=== PATIENT | male | born 1980 | race Caucasian/White ===

== ENCOUNTER 2024-09-03 16:08 | Emergency (ER) | payer MEDICARE, MEDICAID ==
[~2024-09-03] VITALS: Ht 177.8 cm; Wt 113.0 kg
[2024-09-03 16:16] VITALS: O2SAT 90
[2024-09-03] MEDS: IPRATROPIUM BROMIDE (0.02%) 0.5MG/2.5ML NEB HHN STA (16:31)
[2024-09-03] MEDS: ALBUTEROL (0.083%) 2.5MG/3ML NEB HHN SCH (17:00)
[2024-09-03] MEDS: PREDNISONE 20MG TABLET PO STA (17:05)
[2024-09-03] MEDS ORDERED: IPRATROPIUM/ALBUTEROL 0.5-3(2.5)MG/3ML NEB NEB PRN (22:30)
[2024-09-03] MEDS ORDERED: HALOPERIDOL LACTATE 5MG/ML VIAL IM PRN (22:30)
[2024-09-03] MEDS ORDERED: GUAIFENESIN 200MG/10ML SUGAR FREE UDC PO PRN (22:30)
[2024-09-03] MEDS ORDERED: CLONIDINE 0.1MG TABLET PO PRN (22:30)
[2024-09-03] MEDS ORDERED: ACETAMINOPHEN 325MG TABLET PO PRN ×2 (22:30)
[2024-09-03] MEDS ORDERED: NITROGLYCERIN 0.4MG TABLET SL SL PRN (22:30)
[2024-09-03] MEDS ORDERED: DOCUSATE SODIUM 100MG CAPSULE PO PRN (22:30)
[2024-09-03] MEDS ORDERED: MAGNESIUM/ALUMINUM HYDROXIDE/SIMETHICONE 30ML UDC PO PRN (22:30)
[2024-09-03] MEDS ORDERED: ONDANSETRON HCL 4MG/2ML INJ IV PRN (22:30)
[2024-09-03] MEDS ORDERED: KETOROLAC 15MG/ML VIAL IV PRN (22:30)
[2024-09-03] MEDS ORDERED: ZOLPIDEM TARTRATE 5MG TABLET PO PRN (22:30)
[2024-09-04 02:34] LABS: CHLORIDE 100 mEq/L (98-107); POTASSIUM 4.6 mEq/L (3.5-5.1); SODIUM 138 mEq/L (136-145)
[2024-09-04 02:35] LABS: CALCIUM 9.7 mg/dL (8.7-10.4); CARBON DIOXIDE 30 mEq/L (21-32)
[2024-09-04 02:40] LABS: GLUCOSE 150 mg/dL (70-105); IRON 34 ug/dL (65-175)
[2024-09-04 02:41] LABS: ETHANOL BLOOD < 10 mg/dL (<10); LDL CHOLESTEROL 130 mg/dL (5-100); TRIGLYCERIDE 170 mg/dL (0-150); UREA NITROGEN BLOOD 18 mg/dL (9-23)
[2024-09-04 02:42] LABS: CHOLESTEROL 183 mg/dL (<200); HDL CHOLESTEROL 30 mg/dL (>55)
[2024-09-04 02:43] LABS: TOTAL IRON BINDING CAPACITY 396 ug/dl (250-425); TROPONIN I HIGH SENSITIVITY 4 ng/L (3.0-53)
[2024-09-04 02:46] LABS: BASOPHILS % 0.6 % (0.0-2.0); EOSINOPHILS % 0.1 % (0.0-5.0); HEMATOCRIT. 42.2 % (42.0-52.0); HEMOGLOBIN. 13.9 g/dL (14.0-18.0); LYMPHOCYTES % 16.1 % (20.0-50.0); MEAN CORPUSCULAR HEMOGLOBIN 31.4 pg (28.0-32.0); MEAN CORPUSCULAR HGB CONC 33.1 g/dL (31.0-37.0); MEAN PLATELET VOLUME 9.8 fl (7.4-10.4); NEUTROPHILS % 76.2 % (40.0-76.0); PLATELET 254 x1000/uL (130-400); RED BLOOD CELL COUNT 4.44 mill/uL (4.7-6.1); RED CELL DISTRIBUTION WIDTH 15.8 % (11.6-14.6); T4 FREE 1.16 ng/dL (0.89-1.76); THYROID STIMULATING HORMONE 1.29 uIU/mL (0.55-4.78); WHITE BLOOD COUNT 7.3 x1000/uL (4.5-11.0)
[2024-09-04 02:53] LABS: D-DIMER 0.34 mg/L FEU (<0.50); INR 0.9; PROTHROMBIN TIME 10.4 sec (9.6-11.0)
[2024-09-04 03:52] LABS: FOLIC ACID (FOLATE) SERUM > 20.00 ng/mL (>5.38)
[2024-09-04 03:53] LABS: VITAMIN B12 SERUM 493 pg/mL (211-911)
[2024-09-04 08:19] LABS: BASOPHILS % 0.4 % (0.0-2.0); HEMATOCRIT. 40.9 % (42.0-52.0); HEMOGLOBIN. 13.5 g/dL (14.0-18.0); LYMPHOCYTES % 23.2 % (20.0-50.0); MEAN CORPUSCULAR HEMOGLOBIN 31.6 pg (28.0-32.0); MEAN CORPUSCULAR VOLUME 95.8 fL (80.0-94.0); MONOCYTES % 13.4 % (2.0-8.0); PLATELET 265 x1000/uL (130-400); RED BLOOD CELL COUNT 4.27 mill/uL (4.7-6.1); RED CELL DISTRIBUTION WIDTH 15.9 % (11.6-14.6); WHITE BLOOD COUNT 7.7 x1000/uL (4.5-11.0)
[2024-09-04 08:35] LABS: CHLORIDE 103 mEq/L (98-107); POTASSIUM 4.4 mEq/L (3.5-5.1); SODIUM 139 mEq/L (136-145)
[2024-09-04 08:36] LABS: CALCIUM 9.6 mg/dL (8.7-10.4); CARBON DIOXIDE 27 mEq/L (21-32)
[2024-09-04 08:41] LABS: CREATININE 0.9 mg/dL (0.6-1.3); GLUCOSE 123 mg/dL (70-105); UREA NITROGEN BLOOD 23 mg/dL (9-23)
[2024-09-04 08:43] LABS: ALANINE AMINOTRANSFERASE 71 IU/L (10-49); ALBUMIN 4.8 g/dL (3.2-4.8); ASPARTATE AMINOTRANSFERASE 55 IU/L (<34); BILIRUBIN TOTAL 0.2 mg/dL (0.1-1.0); PHOSPHORUS 4.1 mg/dL (2.5-4.9); PROTEIN TOTAL 8.2 g/dL (6.0-8.3)
[2024-09-04] MEDS ORDERED: GUAIFENESIN 600MG ER TABLET PO SCH (09:00)
[2024-09-04] MEDS ORDERED: ZYDS20 PO (11:39)
[2024-09-04] MEDS: DIPHENHYDRAMINE 50MG/ML VIAL IM ONE (11:40)
[2024-09-04] MEDS: ENOXAPARIN 30MG/0.3ML SYR SUBCUT SCH (11:40)
[2024-09-04] MEDS: AZITHROMYCIN 500 MG in DEXT 5% WATER 250 ML IV SCH (11:41)
[2024-09-04] MEDS: IPRATROPIUM/ALBUTEROL 0.5-3(2.5)MG/3ML NEB HHN SCH (11:41)
[2024-09-04] MEDS: HALOPERIDOL LACTATE 5MG/ML VIAL IM ONE (11:41)
[2024-09-04] MEDS ORDERED: DIVA500T3 MT (11:44)
[2024-09-04] MEDS ORDERED: BENZ1TAB79 MT (11:48)
[2024-09-04] MEDS: FAMOTIDINE 20MG TABLET PO SCH (11:50)
[2024-09-04] MEDS: METHYLPREDNISOLONE SOD SUCC 125MG/2ML (ACT-O-VIAL) IV SCH (11:50)
[2024-09-04 13:17] VITALS: BP 153/89; PULSE 89; RESP 18; TEMP 36.78072; O2SAT 94
== END 2024-09-04 16:02 ==
LOC: EDBD 16:08 → ER 16:08 → EDBEDREQ 19:26 → EDBEDREQSVC 19:26 → EDBEDREQ 19:27 → CANBEDREQ 09-04 15:06 → ER 09-04 16:02
DX: J45.901 Unspecified asthma with (acute) exacerbation (principal); F20.9 Schizophrenia, unspecified; R09.02 Hypoxemia; Z79.899 Other long term (current) drug therapy
CPT/HCPCS: 36415 ×2; 71045; 93970; 93005; 99291; 80061; 80053; 80048; 80320; 82550; 82553; 82607; 82746; 83036; 83880; 84439; 83540; 83550; 83735; 84100; 84443; 85025; 85379; 85610; 84484; 84145; 96374; J7512; J0456; J7060; J2919; G0480

== ENCOUNTER 2025-02-06 09:14 | Emergency (ER) | payer MEDICAID ==
[~2025-02-06] VITALS: Ht 180.3 cm; Wt 110.0 kg
[~2025-02-06 09:14] MED LIST: ALBU18HF2 IH; ALLO100T PO; ATOR10TA69 PO; AZIT250T MT; BENZ1TAB79 GT; BENZ1TAB79 MT; CHOL400D7 PO; DIVA500T3 MT; GABA-1180 PO; HALO2ORA3 IM; IBUP-2029 PO; IBUP-2030 PO; NALT50TA5 GT; NAPR-1486 PO; PILO5TAB17 PO; PRED10TA PO; PROP20TA7 PO; SERT100T PO; ZYDS20 PO; [UNRECOGNIZED DRUG - OTHER] PO
[2025-02-06 09:23] VITALS: O2SAT 96
[2025-02-06] MEDS: KETOROLAC 30MG/ML VIAL IM ONE (10:18)
[2025-02-06] MEDS ORDERED: IBUP-2029 PO (10:58)
[2025-02-06] MEDS ORDERED: ALLO100T PO (10:58)
[2025-02-06 11:53] VITALS: BP 110/66; PULSE 90; RESP 18; TEMP 37; O2SAT 96
== END 2025-02-06 11:53 | disposition home or self-care (01) ==
LOC: ER 09:14
DX: M25.571 Pain in right ankle and joints of right foot (principal); M25.572 Pain in left ankle and joints of left foot; S96.811A Strain of other specified muscles and tendons at ankle and foot level, right foot, initial encounter; F41.9 Anxiety disorder, unspecified; J45.909 Unspecified asthma, uncomplicated; E11.9 Type 2 diabetes mellitus without complications; I10 Essential (primary) hypertension; M10.9 Gout, unspecified; Z79.899 Other long term (current) drug therapy
CPT/HCPCS: 99283; 29515; 73610; 96372; J1885; A6449